=== PATIENT | male | born 1995 | race Caucasian/White ===

== ENCOUNTER 2018-03-22 17:46 | Emergency (ER) | payer OTHER ==
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
[2018-03-22] MEDS ORDERED: LET GEL TOPICAL 1 EA SYR TP ONE ×2 (18:13→18:20)
[2018-03-22] MEDS ORDERED: HYDROCOD/APAP 5/325 PREPACK#6 BTL TAKEHOME ONE (19:29)
[2018-03-22 20:30] VITALS: BP 121/74
== END 2018-03-22 20:25 | disposition home or self-care (01) ==
DX: S42.022A Displaced fracture of shaft of left clavicle, initial encounter for closed fracture (principal); V18.9XXA Unspecified pedal cyclist injured in noncollision transport accident in traffic accident, initial encounter; Y92.830 Public park as the place of occurrence of the external cause; Y99.8 Other external cause status; Y93.39 Activity, other involving climbing, rappelling and jumping off
CPT/HCPCS: A4565